=== PATIENT | female | born 1975 | race Two or more races ===

== ENCOUNTER 2017-10-12 00:48 | Emergency (ER) | END 2017-10-12 03:32 | disposition home or self-care (01) ==

== ENCOUNTER 2018-10-16 19:58 | Emergency (ER) | payer BC, OTHER ==
[~2018-10-16] VITALS: Ht 160 cm; Wt 78.2 kg
[~2018-10-16 19:58] MED LIST: LORA1TAB PO
[2018-10-16 20:00] VITALS: Ht 160 cm; Wt 78.2 kg
[2018-10-16] MEDS ORDERED: KETOROLAC 60 MG INJ IM STA (21:38)
[2018-10-16] MEDS ORDERED: IBUP-1542 PO (21:43)
[2018-10-16] MEDS ORDERED: PRED20TA PO (21:43)
[2018-10-16] MEDS ORDERED: HYDR-4011 PO (21:43)
[2018-10-16] MEDS ORDERED: CYCL10TA7 PO (21:43)
--- NOTE | 2018-10-16 21:54 | ERD ---
ER Documentation Chief Complaint Chief Complaint C/O LOWER PAIN PAIN SINCE 2PM, STATES BACK PROBLEMS HPI 43-year-old female presents here to emergency department for complaints of lower back pain that started at 2 PM today, has history of chronic back pain, does has degenerative disc disease, started to have the pain again today, took Tylenol Motrin at home with only mild relief. Describes the pain as throbbing pain, succession scale, not better or worse with anything. Patient denies any trauma, denies any incontinence, denies any fever or chills. Denies any hematuria or dysuria. ROS All systems reviewed and are negative except as per history of present illness. Medications Home Meds Active Scripts Ibuprofen* (Motrin*) 600 Mg Tab, 600 MG PO Q6H PRN for PAIN AND OR ELEVATED TEMP, #30 TAB Prov:RASHMI PATEL STONER HAND 10/16/18 Prednisone* (Prednisone*) 20 Mg Tab, 60 MG PO DAILY for 5 Days, TAB Prov:RASHMI PATEL STONER HAND 10/16/18 Cyclobenzaprine Hcl* (Cyclobenzaprine Hcl*) 10 Mg Tablet, 10 MG PO TID, #15 TAB Prov:RASHMI PATEL STONER HAND 10/16/18 Hydrocodone/Acetaminophen (Hayden 5-325 Tablet) 1 Each Tablet, 1 TAB PO Q6H PRN for SEVERE PAIN LEVEL 7-10, #7 TAB Prov:RASHMI PATEL STONER HAND 10/16/18 Lorazepam* (Lorazepam*) 1 Mg Tablet, 1 MG PO Q8, #10 TAB Prov:LORENA BEJARANO 10/12/17 Allergies Allergies: Coded Allergies: No Known Allergies (Verified Allergy, Unknown, 10/12/17) PMhx/Soc Medical and Surgical Hx: pt denies Medical Hx, pt denies Surgical Hx History of Surgery: No Anesthesia Reaction: No Hx Neurological Disorder: No Hx Respiratory Disorders: No Hx Cardiac Disorders: No Hx Psychiatric Problems: No Hx Miscellaneous Medical Probl: No Hx Alcohol Use: No Hx Substance Use: No Hx Tobacco Use: No Smoking Status: Never smoker FmHx Family History: No diabetes, No coronary disease, No other Physical Exam Vitals Vital Signs Date Temp Pulse Resp B/P (MAP) Pulse Ox O2 O2 Flow FiO2 Time Delivery Rate 10/16/18 97.5 76 19 126/67 99 20:00 (86) Physical Exam GENERAL: The patient is well developed and appropriate for usual state of health, in no apparent distress. CHEST: Clear to auscultation bilaterally. There are no rales, wheezes or rhonchi. HEART: Regular rate and rhythm. No murmurs, clicks, rubs or gallops. No S3 or S4. ABDOMEN: Soft, nontender and nondistended. Good bowel sounds. No rebound or guarding. No gross peritonitis. No gross organomegaly or masses. No Reeder sign or McBurney point tenderness. BACK: No midline or flank tenderness. Positive bilateral straight leg test. EXTREMITIES: Equal pulses bilaterally. There is no peripheral clubbing, cyanosis or edema. No focal swelling or erythema. Full range of motion. Grossly neurovascularly intact. NEURO: Alert and oriented. Cranial nerves 2-12 intact. Motor strength in all 4 extremities with 5/5 strength. Sensation grossly intact. Normal speech and gait. SKIN: There is no apparent rash or petechia. The skin is warm and dry. HEMATOLOGIC AND LYMPHATIC: There is no evidence of excessive bruising or lymphedema. No gross cervical, axillary, or inguinal lymphadenopathy. Results 24 hrs Current Medications Medications Dose Sig/Frank Start Time Status Last (Trade) Ordered Route PRN Stop Time Admin Dose Reason Admin Ketorolac 60 mg ONCE STAT 10/16/18 DC Tromethamine IM 21:38 (Toradol) 10/16/18 21:39 125 mg ONCE ONCE 10/16/18 Methylprednis IM 22:00 olone Sodium 10/16/18 22:01 Succinate (Solu-Medrol) Patient was given medication for pain here in emergency department, after treatment, patient verbalized feeling much better. Patient's pain is improved. Procedures/MDM Medical Decision Making: Patient's pain is most likely consistent with chronic back pain most likely from degenerative disc disease.. There is no suspicion for neurovascular compromise. Patient has intact sensation and circulation of the affected extremity and distal extremities. No incontinence, no suspicion for cauda equina syndrome, no saddle anesthesia, no symptoms of any acute bacterial infection, no symptoms of any perirectal abscesses, pilonidal cyst.There is low suspicion for septic arthritis. Patient does not have any fever. No symptoms of any aortic dissection or aortic aneurysm. Radiology exam not indicated at this time. Disposition: Home. Patient is given prescription for ibuprofen for mild to moderate pain, Hayden for severe pain, Flexeril for muscle spasm, prednisone. Patient was advised to avoid heavy lifting , apply warm compresses on affected area. Patient was advised that if symptoms are worse, numbness, tingling, high fever, unable to move joint, worsening symptoms, to return to emergency department immediately. Otherwise, patient is advised to follow up with the primary care doctor in 5-7 days for reevaluation of symptoms. Disclaimer: Inadvertent spelling and grammatical errors are likely due to EHR/dictation software use and do not reflect on the overall quality of patient care. Also, please note that the electronic time recorded on this note does not necessarily reflect the actual time of the patient encounter. Departure Diagnosis: Primary Impression: Back pain Back pain location: low back pain Chronicity: acute Back pain laterality: bilateral Sciatica presence: without sciatica Qualified Codes: M54.5 - Low back pain Condition: Stable Patient Instructions: Back Pain W/ Sciatica RASHMI PATEL NP Oct 16, 2018 21:54
[2018-10-16] MEDS ORDERED: METHYLPREDNISOLONE 125 MG INJ IM ONE (22:00)
[2018-10-16 22:09] VITALS: BP 99/60; PULSE 83; RESP 18
== END 2018-10-16 22:23 | disposition home or self-care (01) ==
LOC: FTE 19:58
DX: M54.5 Low back pain (principal)
CPT/HCPCS: 81025; 96372; J1885; J2930; Z7502